=== PATIENT | female | born 1960 | race Caucasian/White ===

== ENCOUNTER 2017-01-24 15:00 | Inpatient (IN) | payer BC, OTHER ==
[~2017-01-24] VITALS: Ht 175.3 cm; Wt 109.8 kg
[~2017-01-24 15:00] MED LIST: ACET-2605 PO; ATOR10TA PO; Baclofen PO; CHOL400T28 PO; DICY20TA28 PO; DOCU100C36 PO; Docusate Sodium PO; Gabapentin PO; HYDR-3895 PO; PANT40TA4 PO; QUET100T PO; VALS160T2 GT
--- NOTE | 2017-01-24 15:20 | NUR ---
PRE ADMISSION Pt 56 y/o female received in intake. Pt alert and oriented to name, place, and time. Perrla. Skin warm and slightly moist to touch. Respirations even and unlabored. Bilateral hand tremors noted. Pt with pressured speech noted. Pt appeared agitated with brash abrupt responses. dq=721/63 p=83 t=98.0 r=16 o2=96%@ra. Explained unit rules to pt with acknowledgement. No distress noted.
--- NOTE | 2017-01-24 15:30 | NUR ---
ADMISSION Pt 56 y/o female admitted for etoh dependence. Pt alert and oriented to name, place, and time. Perrla. Skin warm and slightly moist to touch. Respirations even and unlabored. Bilateral hand tremors noted. Bruising on right lower back noted. Pt states it was from at s/p fall on 01/23/17 at home. Pt with pressured speech noted. Pt appeared agitated with brash abrupt responses. fa=645/63 p=83 t=98.0 r=16 o2=96%@ra. made aware of pt admission. Pt denies any seizure history. NKA. Full code. Pt states does not have pmd. Oriented pt to room and unit. VS wnl. substance hx: etoh wine oral. 6 regular bottles daily x2 weeks. Last drink was on 01/24/17 this morning and had 2 regular bottles. total 20 years. Medical hx: gastric bypass 1987 treatment hx: [facility] 05/2016 passages 05/2016 x 3 months Addendum: 01/24/17 at 1924 by JEFFREY MORELOS RN additional substance hx: Librium po unknown dose. Pt states has taken 1 pill daily x3 days. Last took on 01/24/17 1 pill.
[2017-01-24] MEDS ORDERED: TRAZ-147 PO (16:02)
[2017-01-24] MEDS ORDERED: CELE200C PO (16:02)
[2017-01-24] MEDS ORDERED: IBUP-1610 PO (16:02)
[2017-01-24] MEDS ORDERED: PROP40TA7 PO (16:02)
[2017-01-24] MEDS ORDERED: ONDA4TAB5 PO (16:02)
[2017-01-24] MEDS ORDERED: DULO60CA45 PO (16:02)
[2017-01-24] MEDS ORDERED: ATOR10TA PO (16:02)
[2017-01-24] MEDS ORDERED: ACAM333T8 PO (16:02)
[2017-01-24] MEDS ORDERED: ARNICA MONTANA SL (16:02)
[2017-01-24] MEDS ORDERED: GABA600T2 PO (16:02)
[2017-01-24] MEDS ORDERED: NAPR220T66 PO (16:02)
[2017-01-24] MEDS ORDERED: LACT1CAP57 PO (16:02)
[2017-01-24] MEDS ORDERED: ONDANSETRON HCL 4 MG TABLET PO PRN (16:30)
[2017-01-24] MEDS ORDERED: LORAZEPAM 1 MG TABLET PO PRN ×2 (16:30→17:30)
--- NOTE | 2017-01-24 16:30 | NUR ---
PRN pT WITH CIWA=12. bilateral hand tremors noted. Pt anxious and agitated with pressured speech and quick abrupt responses with raised voice. Ativan 1 mg po prn per MD order given and tolerated well.
[2017-01-24 16:47] LABS: *AMPHETAMINE, URINE NEGATIVE (NEGATIVE); *BARBITURATE, URINE NEGATIVE (NEGATIVE); *CANNABINOID, URINE NEGATIVE (NEGATIVE); *COCCAINE, URINE NEGATIVE (NEGATIVE); *OPIATE, URINE NEGATIVE (NEGATIVE); *PHENCYCLIDINE SCREEN,URINE NEGATIVE (NEGATIVE)
[2017-01-24] MEDS ORDERED: MAG HYDROX/AL HYDROX/SIMETH 30 ML LIQUID UDC PO PRN (17:30)
[2017-01-24] MEDS ORDERED: MIRALAX 17 GM POWD.PACK PO PRN (17:30)
[2017-01-24] MEDS ORDERED: diphenhydrAMINE 50 MG CAPSULE PO PRN (17:30)
[2017-01-24] MEDS ORDERED: LORAZEPAM 2 MG/1 ML VIAL IM PRN (17:30)
[2017-01-24] MEDS ORDERED: THIAMINE HCL 200 MG/2 ML VIAL IM ONE (17:30)
[2017-01-24] MEDS ORDERED: ONDANSETRON 4 MG/2 ML VIAL IM PRN (17:30)
[2017-01-24] MEDS ORDERED: ONDANSETRON ODT 4 MG TAB.RAPDIS SL PRN (17:30)
[2017-01-24] MEDS ORDERED: LOPERAMIDE HCL 2 MG CAPSULE PO PRN ×2 (17:30)
[2017-01-24] MEDS ORDERED: ACETAMINOPHEN 325 MG TABLET PO PRN (17:30)
--- NOTE | 2017-01-24 17:30 | NUR ---
PRN EVAL Pt with ciwa=4.
[2017-01-24] MEDS: CLONIDINE HCL 0.1 MG TABLET PO PRN (18:02)
--- NOTE | 2017-01-24 18:15 | NUR ---
PRN Pt states feels anxious. Catapres po prn per MD order given and tolerated well.
--- NOTE | 2017-01-24 18:50 | NUR ---
END OF SHIFT Pt 56 y/o female admitted for etoh dependence. Pt alert and oriented to name, place, and time. Perrla. Skin warm and slightly moist to touch. Respirations even and unlabored. Bilateral hand tremors noted. Pt with periods of anxiety and agitation this afternoon. Pt observed isolative to room since being admitted on unit this afternoon. Pt did not attend group activity this evening. Pt medication compliant and tolerated well. No ASE noted. Bed on lowest position with side rails x2 up for safety. Call light within reach. No distress noted at this time.
[2017-01-24] MEDS: LORAZEPAM 1 MG TABLET PO PRN (19:01)
--- NOTE | 2017-01-24 19:04 | NUR ---
PRN pt with ciwa = 8. Pt with bilateral hand tremors noted. Pt states feels anxious and is agitated. Ativan 1mg po prn per MD order given and tolerated well.
--- NOTE | 2017-01-24 19:15 | NUR ---
START OF SHIFT NOTE : Pt is 56 years old female admitted for ETOH dependence on 01/24/2017. Pt denies any seizure history. NKA. Full code on Reg. Diet. Pt. is resting in the room , alert and oriented to name, place, and time. Perrla. Skin warm and slightly moist to touch. RR=16, respirations even and unlabored. Bilateral hand tremors noted. Bruising on right lower back noted. Pt states it was from at s/p fall on 01/23/17 at home. Pt. placed on Ativan 2mg at 20:00 and 23:00 today. Safety measures in place : bed on lowest position with side rails x2 up for safety, call light within reach. Will continue to monitor closely and offer help.
[2017-01-24] MEDS ORDERED: IV NS 1000 ML 1,000 ML IV PRN (19:45)
[2017-01-24 20:00] VITALS: BP 135/75
[2017-01-24] MEDS: LORAZEPAM 1 MG TABLET PO SCH (20:18)
[2017-01-24 20:27] LABS: BASOPHILS % (AUTO) 0.1 % (0.0-2.0); EOSINOPHILS # (AUTO) 0.1 K/uL (0.0-0.7); EOSINOPHILS % (AUTO) 0.8 % (0.0-7.0); HEMATOCRIT 32.6 % (37-47); HEMOGLOBIN 11.2 G/DL (12.0-16.0); LYMPHOCYTES # (AUTO) 2.5 K/UL (0.8-4.8); MEAN CORPUSCULAR HEMOGLOBIN 30.4 UUG (27.0-31.0); MEAN CORPUSCULAR HGB CONC 34 g/dL (32.0-37.0); MEAN CORPUSCULAR VOLUME 88.4 FL (81.0-99.0); MONOCYTES # (AUTO) 0.5 K/UL (0.1-1.30); MONOCYTES % (AUTO) 4.2 % (0.0-11.0); NEUTROPHILS # (AUTO) 9.5 K/UL (1.8-8.9); NEUTROPHILS % (AUTO) 74.9 % (38.5-71.5); PLATELET COUNT (AUTO) 150 K/UL (150-450); RED BLOOD CELL COUNT(AUTO) 3.68 MIL/UL (4.2-5.4); WHITE BLOOD COUNT (AUTO) 12.6 K/UL (4.0-11.2)
[2017-01-24 20:34] LABS: ALANINE AMINOTRANSFERASE 45 U/L (14-59); ALKALINE PHOSPHATASE 142 U/L (50-136); AMYLASE 61 U/L (25-115); ASPARTATE AMINOTRANSFERASE 44 U/L (15-37); BILIRUBIN,TOTAL 1.1 mg/dL (0.2-1.0); CARBON DIOXIDE 27 mmol/L (21-32); CHLORIDE 95 mmol/L (98-107); CREATININE 0.9 mg/dL (0.6-1.3); ETHANOL < 3 MG/DL (0-0); GLUCOSE 119 mg/dL (74-106); MAGNESIUM 1.8 mg/dL (1.8-2.4); POTASSIUM 3.6 mmol/L (3.5-5.1); TOTAL PROTEIN, SERUM 6.1 g/dL (6.4-8.2); UREA NITROGEN, BLOOD 11 mg/dL (7-18)
[2017-01-24] MEDS: ATORVASTATIN 10MG PO SCH (20:55)
[2017-01-25] MEDS: LORAZEPAM 1 MG TABLET PO SCH ×4 (00:02→21:42)
[2017-01-25 00:37] VITALS: BP 148/87
--- NOTE | 2017-01-25 01:30 | NUR ---
PRN BENADRYL PT. COMPLAINS OF SLEEPLESSNESS, PRN BENADRYL GIVEN ORDERED. Safety measures in place : bed on lowest position with side rails x2 up for safety, call light within reach. Will continue to monitor closely and offer help.
--- NOTE | 2017-01-25 02:15 | NUR ---
IV Insert: Patient dehydrated and IV insertion difficult. Attempted x2 by RN's from unit. At 02:15, 22G inserted into left upper arm by ER nurse. Patient tolerated procedure well.
--- NOTE | 2017-01-25 02:30 | NUR ---
RE-ASSESSMENT SAURABH PT. IS SLEEPING , RR=16, UNLABORED AND EVEN . Safety measures in place : bed on lowest position with side rails x2 up for safety, call light within reach. Will continue to monitor closely and offer help.
--- NOTE | 2017-01-25 03:30 | NUR ---
JULIUS ORDONEZ, ATIVAN, CLONIDINE PT. COMPLAINS OF INCREASED LEVEL OF ANXIETY, NAUSEA, FLASHES, MILD BODY ACHE. PRBrain ZOFRAN, ATIVAN, CLONIDINE GIVEN ORDERED. Safety measures in place : bed on lowest position with side rails x2 up for safety, call light within reach. Will continue to monitor closely and offer help. Addendum: 01/25/17 at 0551 by WILLIAM العلي RN PRBrain ASHBYAN and ATIVAN given by the horticulture instructor, see also her notes. I gave Clonidine.
[2017-01-25] MEDS: LORAZEPAM 1 MG TABLET PO PRN ×2 (03:41→16:24)
--- NOTE | 2017-01-25 03:41 | NUR ---
PRN Zofran and PRN Ativan: Patient complains of severe nausea, anxiety, and agitation. Patient noted to be diaphoretic with moderate tremor. CIWA is 15. Administered PRN Ativan 1mg and PRN Zofran 4mg as ordered. Will endorse follow up and reassessment to primary nurse
[2017-01-25] MEDS: CLONIDINE HCL 0.1 MG TABLET PO PRN ×2 (03:48→16:24)
[2017-01-25 04:00] VITALS: BP 144/80
--- NOTE | 2017-01-25 04:30 | NUR ---
RE-ASSESSMENT ZOFRVENITA, ATIVAN, CLONIDINE PT. IS SLEEPING , RR=16, UNLABORED AND EVEN. Safety measures in place : bed on lowest position with side rails x2 up for safety, call light within reach. Will continue to monitor closely and offer help.
--- NOTE | 2017-01-25 05:00 | NUR ---
PRN ATIVAN PT. COMPLAINS OF INCREASED LEVEL OF ANXIETY, NAUSEA, FLASHES, MILD BODY ACHE, TREMOR. CIWA=16 , ATIVAN GIVEN ORDERED. Safety measures in place : bed on lowest position with side rails x2 up for safety, call light within reach. Will continue to monitor closely and offer help.
--- NOTE | 2017-01-25 06:00 | NUR ---
RE-ASSESSMENT ATIVAN PT. IS ABLE TO REST QUIETLY , RR=16, UNLABORED AND EVEN. CIWA=6 . Safety measures in place : bed on lowest position with side rails x2 up for safety, call light within reach. Will continue to monitor closely and offer help.
--- NOTE | 2017-01-25 06:54 | NUR ---
END OF SHIFT NOTE : Pt is 56 years old female admitted for ETOH dependence on 01/24/2017. Pt denies any seizure history. NKA. Full code on Reg. Diet. Pt. is alert and oriented to name, place, and time. Skin warm and slightly moist to touch. RR=16, respirations even and unlabored. Bruising on right lower back noted. Pt states it was from at s/p fall on 01/23/17 at home. IV G22 placed to the left UA, NS 0.9% at 125ml/h started around 02:00 A.M. Pt remains compliant with the treatment plan, Bilateral hand tremors noted. PRN BENADRYL, ZOFRAN, ATIVAN, CLONIDINE were given during my shift. Ativan PRN was given because of CIWA=16. V/S remain WNL. RR=16, even and unlabored, lungs clear upon auscultation, abdomen soft and non- distended. Pt denies vomiting and diarrhea. COWS taken when pt. was alert during the night, LAST COWS= 6 at 0600 , [id number] ml, voided x3 , slept 4 hours. IV drip stopped because of pt.s wish at 06:00. Safety measures in place : bed on lowest position with side rails x2 up for safety, call light within reach. Will continue to monitor closely and offer help.
[2017-01-25] MEDS: PANTOPRAZOLE SODIUM 40 MG TABLET.DR PO SCH (07:15)
--- NOTE | 2017-01-25 07:30 | NUR ---
START OF SHIFT Pt is a 56 yr old female, AA&Ox3. Pt was admitted on 01/24/17 for ETOH Dependence and is on 5 day Ativan taper as ordered. medication toni well. Received report from possum trapper nurse. Pt received multiple PRN during the night. Pt was able to sleep intermittent during the night. Last CIWA score was 6 at 0600. Pt has an IV site on LFA with 22 gauge, site is clean and intact. Pt is currently refusing IVF and is place on hold. Will f/u with MD. Pt is currently in bed resting with respirations even and unlabored. No acute distress noted at this time. Skin is intact, warm and dry to touch. Safety precautions observed. Bed kept in low position and locked with side rails up x2. Call light is within reach. Will continue to monitor.
[2017-01-25 08:00] VITALS: BP 129/77
[2017-01-25] MEDS ORDERED: TUBERCULIN,PURIF.PROT.DERIV. 5 TU/0.1 ML TEST ID ONE (09:00)
[2017-01-25] MEDS ORDERED: PATIENT MAY USE OWN MED- MD OK PO SCH (09:00)
[2017-01-25] MEDS: GABAPENTIN 600MG PO SCH ×3 (09:16→21:41)
[2017-01-25] MEDS: THIAMINE HCL 100 MG TABLET PO SCH (09:16)
[2017-01-25] MEDS: VALSARTAN 160MG PO SCH (09:16)
[2017-01-25] MEDS: MULTIVITAMINS,THERAPEUTIC TABLET PO SCH (09:16)
[2017-01-25] MEDS: FOLIC ACID 1 MG TABLET PO SCH (09:16)
[2017-01-25] MEDS: DULOXETINE 60 MG CAPSULE.DR PO SCH (09:40)
[2017-01-25 12:00] VITALS: BP 147/87
[2017-01-25] MEDS ORDERED: KETOROLAC TROMETHAMINE 30 MG INJ IM PRN (12:30)
[2017-01-25] MEDS ORDERED: IV D5 1/2 NS 1000 ML 1,000 ML IV PRN (12:30)
--- NOTE | 2017-01-25 13:21 | NUR ---
NSG NOTES/ PRN GIVEN Pt IV order changed to IV D5 1/2NS and was started on 1308 at 125ml/hr. IV site is on LFA, patent with dressing intact. Pt was also c/o back pain 11/14. Facial grimacing is observed. Toradol 30mg IM PRN was given as ordered. Will continue to monitor.
--- NOTE | 2017-01-25 14:21 | NUR ---
Toradol PRN was effective. Pt states pain level subsided to 4/10. Encouraged increase fluid intake Will continue to monitor.
[2017-01-25 16:00] VITALS: BP 133/82
--- NOTE | 2017-01-25 16:25 | NUR ---
PRN GIVEN Pt is c/o increase anxiety and nausea. CIWA score is 6. Ativan 1mg PO PRN, Clonidine 0.1mg PO PRN and Zofran 4mg SL PRN. Medication was toni well. Pt was encouraged to attend group sessions. Pt was able to verbalize understanding. Encouraged increase fluid intake. Will continue to monitor.
--- NOTE | 2017-01-25 17:25 | NUR ---
PRN RE-ASSESSMENT Ativan PRN, Clonidine PRN and Zofran PRN was effective. Pt continue to be observed with anxiety m/b difficulty staying still. Pt is still encouraged to attend group therapy. Pt was able to verbalize understanding. will continue to monitor.
--- NOTE | 2017-01-25 19:15 | NUR ---
START OF SHIFT NOTE : Pt is a 56 yr old female, AA&Ox3. Pt was admitted on 01/24/17 for ETOH Dependence and is on 5 day Ativan taper as ordered. medication toni well. Pt has been cooperative with medication regimen and plan of care. Pt has been observed with increase anxiety m/b difficultly staying still. Last CIWA score was 6 at 1900. Pt remains on IVF, IV site is on LFA with 22 gauge, site is clean and intact, D51/2NS at 125ml/h is running. Skin is intact, warm and dry to touch. Pt denies any n/v. Safety precautions observed. Bed kept in low position and locked with side rails up x2. Call light is within reach.
--- NOTE | 2017-01-25 19:35 | NUR ---
START OF SHIFT Pt is a 56 yr old female, AA&Ox3. Pt was admitted on 01/24/17 for ETOH Dependence and is on 5 day Ativan taper as ordered. medication toni well. Pt has been cooperative with medication regimen and plan of care. Pt has been observed with increase anxiety m/b difficultly staying still. Ativan PRN and Clonidine PRN was given and was mildly effective. Last CIWA score was 6 at 1600. Pt remains on IVF, IV site is on LFA with 22 gauge, site is clean and intact. Skin is intact, warm and dry to touch. Pt denies any n/v. Safety precautions observed. Bed kept in low position and locked with side rails up x2. Call light is within reach. Addendum: 01/25/17 at 2028 by GIANNA MCADAMS LVN error in documentation. Documentation is END OF SHIFT
[2017-01-25 20:00] VITALS: BP 113/70
[2017-01-25] MEDS ORDERED: LORAZEPAM 1 MG TABLET PO ONE (20:00)
[2017-01-25] MEDS ORDERED: LORAZEPAM 1 MG TABLET PO PRN ×2 (20:00)
[2017-01-25] MEDS: ATORVASTATIN 10MG PO SCH (21:41)
[2017-01-25] MEDS: TRAZODONE 100 MG TABLET PO SCH (21:42)
[2017-01-25] MEDS: CLONIDINE HCL 0.1 MG TABLET PO SCH (21:42)
--- NOTE | 2017-01-25 23:00 | NUR ---
PRN SEROQUEL PT. COMPLAINS OF SLEEPLESSNESS . PRN SEROQUEL GIVEN ORDERED. Safety measures in place : bed on lowest position with side rails x2 up for safety, call light within reach. Will continue to monitor closely and offer help.
[2017-01-25] MEDS: QUETIAPINE FUMARATE 100 MG TABLET PO PRN (23:38)
--- NOTE | 2017-01-25 23:59 | NUR ---
RE-ASSESSMENT SEROQUEL Pt. is sleeping , RR=16, unlabored and even. Safety measures in place : bed on lowest position with side rails x2 up for safety, call light within reach. Will continue to monitor closely and offer help.
--- NOTE | 2017-01-26 06:57 | NUR ---
END OF SHIFT NOTE : Pt is a 56 yr old female, admitted on 01/24/17 for ETOH Dependence and is on 5 day Ativan taper, started on 01/25/2017, medication tolerating well. Pt remains compliant with the treatment plan. PRN SEROQUEL given during my shift. V/S remain WNL. RR=16, even and unlabored, lungs clear upon auscultation, abdomen soft and non- distended. Pt denies nausea, vomiting and diarrhea. COWS taken when pt. was alert during the night, LAST COWS=4 at 0400 , [id number] ml, voided x2 , slept 6 hours. Safety measures in place : bed on lowest position with side rails x2 up for safety, call light within reach. Will continue to monitor closely and offer help.
[2017-01-26 07:31] LABS: BILIRUBIN,DIRECT 0.1 mg/dL (0.0-0.2); BILIRUBIN,TOTAL 0.4 mg/dL (0.2-1.0); CREATININE 0.8 mg/dL (0.6-1.3); MAGNESIUM 2.1 mg/dL (1.8-2.4); PHOSPHOROUS 4.6 mg/dL (2.5-4.9); POTASSIUM 3.5 mmol/L (3.5-5.1)
[2017-01-26] MEDS: PANTOPRAZOLE SODIUM 40 MG TABLET.DR PO SCH (07:35)
--- NOTE | 2017-01-26 07:55 | NUR ---
START OF SHIFT Rcvd endorsement from ongoing nurse, client is in bed, she is a/o x 4, she presents with depressed mood, flat affect, clammy skin, and tremors felt, not observed. Client reports chills, body aches, abdominal cramps, and decreased appetite. Encouraged client to attend group therapy for skills to maintain sober. Client with hep lock 22G on L AC, she is not compliant with IV fluid therapy for hydration, client is eating and drinking and tolerated well, she denies any N/V/D. Will notify MD. Encouraged client to increase PO fluid as tolerated to facilitate detox. One time dose Ativan 2mg for irritability, anxiety, noted effective. PRN Seroquel 150mg for inability to sleep, she slept 6 hrs. Client is a 56 y/o female, admitted to [facility] for withdrawal from alcohol. Client is on 5 day Ativan taper (day 3), tolerating well. Last CIWA 4 @ 0400. She reports hx of withdrawal-induced seizures, she is on seizure precautions. She reports of NKA, he is full code, Regular diet. Side rails x 2 up/padded. Call light within reach.
[2017-01-26 08:00] VITALS: BP 118/74
[2017-01-26 08:46] LABS: BASOPHILS % (AUTO) 0.3 % (0.0-2.0); EOSINOPHILS # (AUTO) 0.1 K/uL (0.0-0.7); EOSINOPHILS % (AUTO) 2.6 % (0.0-7.0); HEMATOCRIT 33.3 % (31.2-41.9); HEMOGLOBIN 11.4 g/dL (10.9-14.3); LYMPHOCYTES # (AUTO) 1.5 K/uL (20.0-40.0); MEAN CORPUSCULAR HGB CONC 34 g/dL (32.3-35.6); MEAN CORPUSCULAR VOLUME 90.4 fL (75.5-95.3); MONOCYTES # (AUTO) 0.3 K/uL (2.0-10.0); MONOCYTES % (AUTO) 6.1 % (0.0-11.0); NEUTROPHILS # (AUTO) 3.7 K/uL (1.8-8.9); RED BLOOD CELL COUNT(AUTO) 3.68 MIL/uL (3.63-4.92)
[2017-01-26 08:56] LABS: PLATELET COUNT (AUTO) 105 K/uL (179-408); WHITE BLOOD COUNT (AUTO) 5.7 K/uL (3.8-11.8)
[2017-01-26] MEDS: MULTIVITAMINS,THERAPEUTIC TABLET PO SCH (08:58)
[2017-01-26] MEDS: THIAMINE HCL 100 MG TABLET PO SCH (08:58)
[2017-01-26] MEDS: DULOXETINE 60 MG CAPSULE.DR PO SCH (08:58)
[2017-01-26] MEDS: LORAZEPAM 1 MG TABLET PO SCH ×3 (08:59→21:48)
[2017-01-26] MEDS: CLONIDINE HCL 0.1 MG TABLET PO SCH ×2 (08:59→14:37)
[2017-01-26] MEDS: FOLIC ACID 1 MG TABLET PO SCH (08:59)
[2017-01-26] MEDS ORDERED: LORAZEPAM 1 MG TABLET PO SCH (09:00)
[2017-01-26] MEDS: GABAPENTIN 600MG PO SCH ×2 (09:00→14:50)
[2017-01-26] MEDS: VALSARTAN 160MG PO SCH (09:01)
[2017-01-26 09:06] LABS: HEPATITIS B SURFACE AG Negative (Negative)
[2017-01-26] MEDS: busPIRone 5 MG TABLET PO SCH ×3 (09:45→17:27)
[2017-01-26 12:00] VITALS: BP 141/81
[2017-01-26] MEDS ORDERED: LORAZEPAM 1 MG TABLET PO ONE (12:00)
--- NOTE | 2017-01-26 12:00 | NUR ---
One time dose Ativan 2mg for CIWA 13, irritability, anxiety, fine tremors, chills. Call light within reach. will continue to monitor.
[2017-01-26] MEDS: IBUPROFEN 400 MG TABLET PO PRN (12:01)
--- NOTE | 2017-01-26 12:01 | NUR ---
PRN Motrin 400mg PO, Tylenol 650mg PO for RUBIO and generalized body aches 5/10 respectively. Call light within reach.
--- NOTE | 2017-01-26 13:00 | NUR ---
Reassessment One time dose Ativan 2mg PO, client appears less anxious and irritable. CIPANCHO 7.
--- NOTE | 2017-01-26 13:01 | NUR ---
Reassessment PRN Motrin 400mg PO, Tylenol 650mg PO effectove, client verbalizes feeling better no more RUBIO or body aches 0/10.
[2017-01-26 16:55] VITALS: BP 115/80
[2017-01-26] MEDS ORDERED: hydrALAZINE HCL 50 MG TABLET PO PRN (19:00)
--- NOTE | 2017-01-26 19:15 | NUR ---
START OF SHIFT NOTE : Pt is a 56 yr old female, AA&Ox3. Pt was admitted on 01/24/17 for ETOH Dependence and is on 5 day Ativan taper as ordered, started on 01/25/2017. Pt has been observed with increase anxiety m/b difficultly staying still, very demanding , running to smoke every 15-20 min. Last CIWA score was 7 at 1900. IVF D/C today. Skin is intact, warm and dry to touch. Pt denies any n/v. Safety precautions observed. Bed kept in low position and locked with side rails up x2. Call light is within reach.
--- NOTE | 2017-01-26 19:30 | NUR ---
END OF SHIFT Client is a 56 y/o female, , a/o x 4, admitted to [facility] for withdrawal from alcohol. Client is on 5 day Ativan taper (day 3), tolerating well. Last CIWA 8 @ 1600. D/Cd hep lock 22G. PRN Motrin 400mg PO, Tylenol 650mg PO for RUBIO and generalized body aches 5/10 respectively. One time dose Ativan 2mg for CIWA 13, irritability, anxiety, fine tremors, chills, effective CIWA 7. She reports hx of withdrawal-induced seizures, she is on seizure precautions. She reports of NKA, he is full code, Regular diet. Side rails x 2 up/padded. Call light within reach.
[2017-01-26 20:00] VITALS: BP 112/78
[2017-01-26] MEDS: TRAZODONE 100 MG TABLET PO SCH (21:47)
[2017-01-26] MEDS ORDERED: GABAPENTIN 300 MG CAPSULE ONE (22:16)
[2017-01-26] MEDS ORDERED: CLONIDINE HCL 0.2 MG TABLET ONE (22:17)
[2017-01-26] MEDS: ATORVASTATIN 10MG PO SCH (23:02)
[2017-01-26] MEDS: GABAPENTIN 300 MG CAPSULE PO SCH (23:03)
[2017-01-26] MEDS: QUETIAPINE FUMARATE 100 MG TABLET PO PRN (23:03)
[2017-01-26] MEDS: CLONIDINE HCL 0.2 MG TABLET PO SCH (23:04)
--- NOTE | 2017-01-27 06:39 | NUR ---
END OF SHIFT NOTE : Pt is a 56 yr old female, AA&Ox3. Pt was admitted on 01/24/17 for ETOH Dependence and is on 5 day Ativan taper as ordered, started on 01/25/2017. Pt remains compliant with the treatment plan. PRN SEROQUEL given during my shift. V/S remain WNL. RR=16, even and unlabored, lungs clear upon auscultation, abdomen soft and non- distended. Pt denies nausea, vomiting and diarrhea. CIWA taken when pt. was alert during the night, LAST CIWA=4 at 0400 , [id number] ml, voided x5 , slept 8 hours. Safety measures in place : bed on lowest position with side rails x2 up for safety, call light within reach. Will continue to monitor closely and offer help.
[2017-01-27] MEDS: PANTOPRAZOLE SODIUM 40 MG TABLET.DR PO SCH (07:00)
--- NOTE | 2017-01-27 07:16 | NUR ---
Start of Shift Endorsement received from nightshift nurse. Pt is a 56 y/o female admitted for alcohol dependence. PT has been placed on a 5 day Ativan taper. Pt is tolerating the taper and moderately withdrawing AEB CIWA 7 at midnight. Pt presents with history of seizures. Pt has received PRN Seroquel during nightshift. Pt reports sleeping 8 hours. PT is alert and oriented x4. Pt is in STABLE condition at this time. Remains compliant with medication and diet regimen. All needs have been met, All safety measures in place per hospital policy. Bed in lowest position, side rails up x2, call-light within reach. Will continue to monitor
[2017-01-27 08:00] VITALS: BP 136/77
[2017-01-27] MEDS ORDERED: LORAZEPAM 1 MG TABLET PO SCH ×2 (09:00→21:00)
[2017-01-27] MEDS: FOLIC ACID 1 MG TABLET PO SCH (09:27)
[2017-01-27] MEDS: LORAZEPAM 1 MG TABLET PO SCH ×3 (09:27→16:31)
[2017-01-27] MEDS: CLONIDINE HCL 0.1 MG TABLET PO SCH ×2 (09:27→15:28)
[2017-01-27] MEDS: THIAMINE HCL 100 MG TABLET PO SCH (09:27)
[2017-01-27] MEDS: DULOXETINE 60 MG CAPSULE.DR PO SCH (09:27)
[2017-01-27] MEDS: MULTIVITAMINS,THERAPEUTIC TABLET PO SCH (09:27)
[2017-01-27] MEDS: busPIRone 5 MG TABLET PO SCH ×3 (09:27→16:31)
--- NOTE | 2017-01-27 09:30 | NUR ---
PRN Imodium Administered PRN Imodium 4mg for repeated episodes of diarrhea reported by the pt.
[2017-01-27] MEDS: VALSARTAN 160MG PO SCH (09:35)
[2017-01-27] MEDS: PATIENT MAY USE OWN MED- MD OK PO SCH ×2 (09:35→15:28)
--- NOTE | 2017-01-27 10:00 | NUR ---
PRN Re-assessment PT reports diarrhea has ceased. Medication was effective.
[2017-01-27 12:00] VITALS: BP 125/82
--- NOTE | 2017-01-27 13:45 | NUR ---
Activity Group Note: Client participated in "Sequence" activity. Intervention goal was to increase task focus and leisure skills. Client's mood appeared anxious with appropriate affect. Client had a coherent and goal-directed thought process, as she was able to understand and complete the task. She stated that she "really likes getting together with people to play games." Clients benefits from leisure activities and social interaction with peers. cabinet worker will continue to encourage participation in activity group.
[2017-01-27 16:00] VITALS: BP 142/82
--- NOTE | 2017-01-27 18:47 | NUR ---
End of Shift Endorsement given to nightshift nurse. Pt is a 56 y/o female admitted for alcohol dependence. PT has been placed on a 5 day Ativan taper. Pt is tolerating the taper and moderately withdrawing AEB CIWA 4 at 1600. Pt presents with history of seizures. Pt has received PRN Imodium, medications were effective. Educated pt on foot hygiene. Educated pt on diet and medication regimen. Pt participated in groups and activities. Intake: 3500ml, Void x4, BM x0. PT is alert and oriented x4. Pt is in STABLE condition at this time. Remains compliant with medication and diet regimen. All needs have been met, All safety measures in place per hospital policy. Bed in lowest position, side rails up x2, call-light within reach. Will continue to monitor
--- NOTE | 2017-01-27 19:15 | NUR ---
START OF SHIFT NOTE : Pt is a 56 yr old female, AA&Ox3. Pt was admitted on 01/24/17 for ETOH Dependence and is on 5 day Ativan taper as ordered, started on 01/25/2017. Pt remains compliant with the treatment plan, complains of mild body ache, mild right leg pain, bruise on her left upper arm (photo assessment done, see chart for details), She wants her sleeping medications at 23:00. Safety measures in place : bed on lowest position with side rails x2 up for safety, call light within reach. Will continue to monitor closely and offer help.
[2017-01-27 20:00] VITALS: BP 148/90
[2017-01-27] MEDS: ATORVASTATIN 10MG PO SCH (21:09)
[2017-01-27] MEDS: GABAPENTIN 300 MG CAPSULE PO SCH (21:11)
[2017-01-27] MEDS: CLONIDINE HCL 0.2 MG TABLET PO SCH (21:11)
[2017-01-27] MEDS: QUETIAPINE FUMARATE 100 MG TABLET PO PRN (23:08)
[2017-01-27] MEDS: TRAZODONE 100 MG TABLET PO SCH (23:08)
--- NOTE | 2017-01-28 06:46 | NUR ---
END OF SHIFT NOTE : Pt is a 56 yr old female, AA&Ox3. Pt was admitted on 01/24/17 for ETOH Dependence and is on 5 day Ativan taper as ordered, started on 01/25/2017 Pt remains compliant with the treatment plan. PRN SEROQUEL given during my shift. RR=16, even and unlabored, lungs clear upon auscultation, abdomen soft and non- distended. Pt denies nausea, vomiting and diarrhea. CIWA taken when pt. was alert during the night, LAST CIWA=5 at 0400 , [id number] ml, voided x4 , slept 5 hours. Safety measures in place : bed on lowest position with side rails x2 up for safety, call light within reach. Will continue to monitor closely and offer help.
[2017-01-28] MEDS: PANTOPRAZOLE SODIUM 40 MG TABLET.DR PO SCH (07:00)
--- NOTE | 2017-01-28 07:10 | NUR ---
Start of Shift Report from night nurse: Pt is a 56 y/o female here for EtoH r/t Win 2 bottles per day and Librium 3 pills per day; 5 day Ativan taper ordered. Pt is a full code, NKA, regular diet, fall and seizure precautions ordered. Hhx: Fall 01/23/2017 causing bruises on RLE and on back, Seizure, Relapse with last visits 05/2016 in detoxes including here, Gastric Bypass Surgery. Pt refused to have the 0700 dose of Protonix this morning during the cnc machinist 2nd shift and is endorsed to me. No PRN's given last night. Last CIWA 5. Pt is asleep in room. Will cont. to monitor the pt.
[2017-01-28 08:00] VITALS: BP 136/80
[2017-01-28] MEDS ORDERED: LORAZEPAM 1 MG TABLET PO SCH ×2 (09:00)
--- NOTE | 2017-01-28 11:00 | NUR ---
Medication Non-Administration Ativan Pt has been asleep snoring in her room since the start of my shift so HELD Ativan 1mg and notified Dr. Starkey. Will cont. to monitor the pt.
[2017-01-28] MEDS: busPIRone 5 MG TABLET PO SCH ×3 (11:15→16:07)
[2017-01-28 12:00] VITALS: BP 146/83
--- NOTE | 2017-01-28 12:00 | NUR ---
PRN Medication Administration Pt c/o RUBIO and general body ache 5/10 and constipation; PRN Motrin 400mg and Miralax given as ordered. Will reassess in 1H.
[2017-01-28] MEDS: THIAMINE HCL 100 MG TABLET PO SCH (12:02)
[2017-01-28] MEDS: CLONIDINE HCL 0.1 MG TABLET PO SCH ×2 (12:02→16:09)
[2017-01-28] MEDS: MULTIVITAMINS,THERAPEUTIC TABLET PO SCH (12:02)
[2017-01-28] MEDS: FOLIC ACID 1 MG TABLET PO SCH (12:02)
[2017-01-28] MEDS: DULOXETINE 60 MG CAPSULE.DR PO SCH (12:02)
[2017-01-28] MEDS: PATIENT MAY USE OWN MED- MD OK PO SCH (12:04)
[2017-01-28] MEDS: VALSARTAN 160MG PO SCH (12:05)
[2017-01-28] MEDS: IBUPROFEN 400 MG TABLET PO PRN (12:06)
[2017-01-28] MEDS: LORAZEPAM 1 MG TABLET PO SCH ×3 (12:44→20:41)
--- NOTE | 2017-01-28 12:45 | NUR ---
Medication Administration Ativan ONCE New Order for Ativan 1mg PO ONCE after I notified Dr. Starkey that the pt is awake and very agitated with anxiety; New orders for Ativan 1mg ONCE given for anxiety. Will reassess in 1H.
--- NOTE | 2017-01-28 13:00 | NUR ---
Reassessment Pt is headed to smoke and states that her RUBIO is relieved but no BM at this time; Motrin is effective. Will cont. to monitor the pt.
--- NOTE | 2017-01-28 13:45 | NUR ---
Activity Group Note: Client attended activity group. She was unable to participate in "painting" activity stating, "I am not feeling well... I will come back once I feel better." Client appeared to have a depressed mood with flat affect. Client was unable to complete the task. sample worker will continue to encourage participation in activity group in the future.
--- NOTE | 2017-01-28 13:45 | NUR ---
Reassessment Pt is going down to smoke after lunch and states that her anxiety has decreased; Ativan is effective for anxiety. Will cont. to monitor the pt.
[2017-01-28 16:00] VITALS: BP 132/82
[2017-01-28] MEDS: GABAPENTIN 300 MG CAPSULE PO SCH ×2 (16:07→20:40)
--- NOTE | 2017-01-28 16:26 | NUR ---
Therapist prompted client about group times. Client apologized for not attending morning group, stated she fell asleep. Client reported she would attend afternoon group.
--- NOTE | 2017-01-28 19:34 | NUR ---
START OF SHIFT NOTE: Patient is a 56 year old female admitted to [facility] on 01/24/2017 for Alcohol and Librium dependence. Patient continue 5 Day Ativan Taper. Patient tolerated well without ASE. Patient remains compliant with treatment, medications, and diet regime. Patient reports NKA. Patient is on Full Code, Regular Diet, Fall and Seizures Precautions. PMH: Anxiety, Depression, Insomnia, HTN, History of Seizures, Falls history "Last on 01/23/2017 r/t intoxication @home", Gastric Pass Surgery, Substance Abuse History. Patient reports Alcohol use "6 bottles of Wine every day during last 2 week". Last used "2 bottles of wine on 01/24/2017 ". Patient reports also "used Librium PO "3 pills total - one per day. Last used 1 pill on 01/24/2017". Upon endorsement, patient is in her room. Patient is alert and oriented x4. Patient denied SI/HI. VSWNL. CIWA 8. Breathing is unlabored and even. Lungs Sounds are clear thoroughly. Abdomen is soft, non-tender. Bowel Sounds are active in all 4 quadrants. Skin is, warm and dry to touch. Patient has bruises on Right Upper Arm and on the Back "from falls on 01/23/2017 @home". Encouraged fluids intake as tolerated. All needs met. Safety measures in place: Call light within the patient, bed in lowest position, and locked, padded bed rails up x2. Patient endorsed by outgoing day shift nurse, report received. Will continue to monitor closely.
--- NOTE | 2017-01-28 19:34 | NUR ---
End of Shift Report from night nurse: Pt is a 56 y/o female here for EtoH r/t Win 2 bottles per day and Librium 3 pills per day; 5 day Ativan taper ordered. Pt is a full code, NKA, regular diet, fall and seizure precautions ordered. Hhx: Fall 01/23/2017 causing bruises on RLE and on back, Seizure, Relapse with last visits 05/2016 in detoxes including here, Gastric Bypass Surgery. Pt refused to have the 0700 dose of Protonix this morning during the rn shift mgr and is endorsed to me yet pt slept and missed her 0900meds including Ativan 1mg so notified. Last CIWA 6. PRN MIralax and MOtrin 400mg given with pt having a BM and RUBIO relieved.
[2017-01-28 20:00] VITALS: BP 135/77
[2017-01-28] MEDS: CLONIDINE HCL 0.2 MG TABLET PO SCH (20:41)
[2017-01-28] MEDS: TRAZODONE 100 MG TABLET PO SCH (20:41)
[2017-01-28] MEDS: ATORVASTATIN 10MG PO SCH (20:47)
[2017-01-29] VITALS: BP 140/84
[2017-01-29] MEDS ORDERED: QUETIAPINE FUMARATE 100 MG TABLET ONE ×2 (00:13→23:04)
[2017-01-29] MEDS: QUETIAPINE FUMARATE 100 MG TABLET PO PRN ×2 (00:20→23:34)
--- NOTE | 2017-01-29 00:20 | NUR ---
PRN SEROQUEL 150 MG 1.5 TAB PO ADMINISTRATION PRN Seroquel 150 mg 1.5 tab. PO administrated with full glass of water as ordered. Patient tolerated well. All needs met. Safety measures on place. Call light within reach, bed in lowest position and locked, padded rails up bilaterally rails up bilaterally. Will continue to monitor closely.
--- NOTE | 2017-01-29 01:20 | NUR ---
RE-ASSESSMENT Patient is sleeping. Respirations even and unlabored. RR:14. PRN Seroquel 150 mg 1.5 tab. PO administrated @0020 was effective. All needs met. Safety measures on place. Call light within reach, bed in lowest position and locked, padded rails up bilaterally rails up bilaterally. Will continue to monitor closely.
--- NOTE | 2017-01-29 04:00 | NUR ---
VS REFUSED AND CIWA DEFERRED Patient refused to be woken up for 0400 VS. CIWA deferred d/t patient sleeping to assess while patient is awake. Safety measures on place by hospital policy: Call light within reach, bed in lowest position, and locked; side rails up x2. Will continue to monitor closely.
--- NOTE | 2017-01-29 07:10 | NUR ---
END OF SHIFT NOTE: Patient is a 56 year old female admitted to [facility] on 01/24/2017 for Alcohol and Librium dependence. Patient continue 5 Day Ativan Taper. Patient tolerated well without ASE. Patient remains compliant with treatment, medications, and diet regime. Patient reports NKA. Patient is on Full Code, Regular Diet, Fall and Seizures Precautions. PMH: Anxiety, Depression, Insomnia, HTN, History of Seizures, Fall history on "01/23/2017 r/t intoxication @home", Gastric Pass Surgery, Substance Abuse History. Patient denied SI/HI. Patient refused to be woken up for 0400 VS. COWS/CIWA deferred d/t patient sleeping to assess while patient is awake. Last CIWA 6 @0000. CIWA taken when patient was alert during the night. Latest VS @0000: T: 97.7, BP: 140/84, HR:97, RR:19, RA O2Sat: 98%. Pain level: "0/10". Respirations unlabored and even. Patient denies SOB and chest pain. Skin is, warm and dry to touch. Patient has bruises on Right Upper Arm and on the Back "from falls on 01/23/2017 @home". PRN Seroquel 150 mg 1.5 tab. PO administrated @0020 was effective. Patient slept 5 hours, intake 2,710 ml, voided x6, stool x1. Encourage fluids as tolerated. Encourage to attend activities groups. All needs met. Safety measures on place. Call light within reach, bed in lowest position and locked, padded rails up bilaterally. Patient endorsed to day shift nurse.
--- NOTE | 2017-01-29 07:30 | NUR ---
START OF SHIFT Pt 56 y/o female admitted for etoh dependence. Pt received in room on bed with eyes closed resting, but easily arousable to name. Pt alert and oriented to name, place, and time. Perrla. Skin warm and dry to touch. Respirations even and unlabored. Bilateral hand tremors noted. It was reported that pt slept for 4 hours last night. Bed on lowest position with side rails x2 up for safety. Call light within reach. No distress noted at this time.
[2017-01-29 08:00] VITALS: BP 132/84
[2017-01-29] MEDS: DULOXETINE 60 MG CAPSULE.DR PO SCH (09:00)
[2017-01-29] MEDS: busPIRone 5 MG TABLET PO SCH ×3 (09:03→18:13)
[2017-01-29] MEDS: GABAPENTIN 300 MG CAPSULE PO SCH ×3 (09:03→21:44)
[2017-01-29] MEDS: LORAZEPAM 1 MG TABLET PO SCH ×2 (09:04→21:45)
[2017-01-29] MEDS: PANTOPRAZOLE SODIUM 40 MG TABLET.DR PO SCH (09:04)
[2017-01-29] MEDS: THIAMINE HCL 100 MG TABLET PO SCH (09:04)
[2017-01-29] MEDS: MULTIVITAMINS,THERAPEUTIC TABLET PO SCH (09:04)
[2017-01-29] MEDS: FOLIC ACID 1 MG TABLET PO SCH (09:04)
[2017-01-29] MEDS: CLONIDINE HCL 0.1 MG TABLET PO SCH ×2 (09:04→14:59)
[2017-01-29] MEDS: VALSARTAN 160MG PO SCH (09:05)
[2017-01-29 12:17] VITALS: BP 136/88
--- NOTE | 2017-01-29 13:45 | NUR ---
Activity Group Note: Client participated in "Sequence" activity. Intervention goal was to increase task focus and leisure skills. Client appeared to have an anxious and combative mood with labile affect. Client had a coherent and goal-directed thought process as she was able to understand and complete the task. Client left 30 minutes early after one round of the game was finished. Client stated, "I'm over this. I'm out." bilingual social worker will check in with client when time permits.
[2017-01-29] MEDS: CELEBREX 200 MG PO SCH (14:57)
[2017-01-29 16:00] VITALS: BP 123/80
--- NOTE | 2017-01-29 18:28 | NUR ---
END OF SHIFT Pt 56 y/o female admitted for etoh dependence. Pt alert and oriented to name, place, and time. Perrla. Skin warm and dry to touch. Respirations even and unlabored. Bilateral hand tremors noted. Pt observed mostly in dining room throughout the day. Pt with periods of anxiety this morning. Pt attended group activity. Pt was seen by MD today. Pt medication compliant and tolerated well. No ASE noted. Bed on lowest position with side rails x2 up for safety. Call light within reach. No distress noted at this time.
--- NOTE | 2017-01-29 19:15 | NUR ---
START OF SHIFT NOTE : Pt is a 56 yr old female, AA&Ox3. Pt was admitted on 01/24/17 for ETOH Dependence and is on 5 day Ativan taper as ordered, started on 01/25/2017. Pt remains partially compliant with the treatment plan, complains of mild body ache, anxiety. She wants her sleeping medications at 23:00. Safety measures in place : bed on lowest position with side rails x2 up for safety, call light within reach. Will continue to monitor closely and offer help.
[2017-01-29 20:00] VITALS: BP 145/85
--- NOTE | 2017-01-29 20:20 | NUR ---
ROOM RESTRICTION Pt. is arguing with a stuff , doesn't follow unit policy and rules. She placed on ROOM RESTRICTION at 20:20
[2017-01-29] MEDS: ATORVASTATIN 10MG PO SCH (21:43)
[2017-01-29] MEDS: CLONIDINE HCL 0.2 MG TABLET PO SCH (21:45)
[2017-01-29] MEDS: TRAZODONE 100 MG TABLET PO SCH (23:34)
--- NOTE | 2017-01-30 06:54 | NUR ---
END OF SHIFT NOTE : Pt is a 56 yr old female, AA&Ox3. Pt was admitted on 01/24/17 for ETOH Dependence and is on 5 day Ativan taper as ordered, started on 01/25/2017. Pt remains partially compliant with the treatment plan, still on room restriction. PRN SEROQUEL was given during my shift. V/S remain WNL. RR=16, even and unlabored, lungs clear upon auscultation, abdomen soft and non- distended. Pt denies nausea, vomiting and diarrhea. CIWA taken when pt. was alert during the night, LAST CIWA=3 at 0400 , [id number] ml, voided x4 , slept 6 hours. Safety measures in place : bed on lowest position with side rails x2 up for safety, call light within reach. Will continue to monitor closely and offer help.
--- NOTE | 2017-01-30 07:00 | NUR ---
Star of Shift Notes: Received patient in her room. Alert and verbally responsive. Able to make her needs known. Respirations even and unlabored. No SOB noted. SKin warm and dry to touch. Abdomen soft and non-distended. BS (+) in all 4 quadrants. No complains of N/V/D or constipation noted. Bladder non-distended. BS (+) in all 4 quadrants. No complains of dysuria. Ambulatory ad jonathan with steady gait. Pztient is a 56 year old female admitted for ETOH and BZO dependence who was placed on a 5-day Ativan taper as ordered. No adverse reactions noted. Prior to admission, patient was using 6 bottles of wine and 3 "pills" of Librium. Has past medical hx of gastric bypass, fall and HTN. No seizure history noted. NKA. FULL CODE. Regular diet. Educated patient on her current plan of care for the day and her medication regimen. Encouraged oral fluid intake and encouraged group participation to learn new skills to prevent relapse. Will continue to monitor
[2017-01-30] MEDS: PANTOPRAZOLE SODIUM 40 MG TABLET.DR PO SCH (07:59)
[2017-01-30 08:00] VITALS: BP 136/82
[2017-01-30] MEDS: MULTIVITAMINS,THERAPEUTIC TABLET PO SCH (08:00)
[2017-01-30] MEDS: GABAPENTIN 300 MG CAPSULE PO SCH (08:00)
[2017-01-30] MEDS: busPIRone 5 MG TABLET PO SCH (08:00)
[2017-01-30] MEDS: DULOXETINE 60 MG CAPSULE.DR PO SCH (08:00)
[2017-01-30] MEDS: CLONIDINE HCL 0.1 MG TABLET PO SCH (08:00)
[2017-01-30] MEDS: VALSARTAN 160MG PO SCH (08:00)
[2017-01-30] MEDS: FOLIC ACID 1 MG TABLET PO SCH (08:00)
[2017-01-30] MEDS: THIAMINE HCL 100 MG TABLET PO SCH (08:00)
[2017-01-30] MEDS: CELEBREX 200 MG PO SCH (08:00)
[2017-01-30] MEDS ORDERED: LORAZEPAM 1 MG TABLET PO SCH (09:00)
[2017-01-30] MEDS ORDERED: METHOCARBAMOL 750 MG TABLET PO PRN (11:15)
[2017-01-30 12:00] VITALS: BP 135/80
--- NOTE | 2017-01-30 12:47 | NUR ---
AMA Note: Patient left the unit AMA. Patient refused to comply with treatment and unit's policies and rules. Patient education provided regarding the risk and consequences of leaving AMA. Patient continues to be adamant about leaving and at times becomes verbally aggressive towards staff. Multiple staff memvers including doctors, caseworker protective services and nurses attempted to reason out with patient without any success. VS WNL. Skin intact. Bruise to right upper and lower back healing, appears yellow on the surface. MD Starkey and patient's psychiatrist. Patient was given a list of community resources, AMA forms explained and signed. All belongings, meds and toiletries were returned to the patient. Patient left the unit via AMA at this time.
[2017-01-30] MEDS ORDERED: GABAPENTIN 300 MG CAPSULE PO SCH (15:00)
== END 2017-01-30 14:42 | disposition left against medical advice (07) | DRG 894 ==
LOC: SRC 15:00
PROVIDERS: ADMIT Internal Medicine; ATTEND Internal Medicine
PROC: HZ2ZZZZ Detoxification Services for Substance Abuse Treatment (ICD-10-PCS; principal; 2017-01-24)
PROC: HZ41ZZZ Group Counseling for Substance Abuse Treatment, Behavioral (ICD-10-PCS; 2017-01-26)
PROC: HZ31ZZZ Individual Counseling for Substance Abuse Treatment, Behavioral (ICD-10-PCS; 2017-01-27)
DX: F10.232 Alcohol dependence with withdrawal with perceptual disturbance (principal); D69.6 Thrombocytopenia, unspecified; E87.8 Other disorders of electrolyte and fluid balance, not elsewhere classified; E88.81 Metabolic syndrome and other insulin resistance; E87.1 Hypo-osmolality and hyponatremia; F33.1 Major depressive disorder, recurrent, moderate; K70.10 Alcoholic hepatitis without ascites; F17.210 Nicotine dependence, cigarettes, uncomplicated; Y90.9 Presence of alcohol in blood, level not specified; F90.9 Attention-deficit hyperactivity disorder, unspecified type; G47.00 Insomnia, unspecified; G89.29 Other chronic pain; K27.7 Chronic peptic ulcer, site unspecified, without hemorrhage or perforation; E66.9 Obesity, unspecified; Z68.35 Body mass index [BMI] 35.0-35.9, adult; E78.5 Hyperlipidemia, unspecified; I15.9 Secondary hypertension, unspecified; E86.1 Hypovolemia; D72.823 Leukemoid reaction; D64.9 Anemia, unspecified; M54.5 Low back pain; F13.90 Sedative, hypnotic, or anxiolytic use, unspecified, uncomplicated; F41.9 Anxiety disorder, unspecified
CPT/HCPCS: 36415; 70030-TC; 80307; 80346; 83735; 84100; 85025; 86580; 86592; 86705; 86803; 87340; 87806; A4663; G0480; J1885; J2405; J3411; J3490; J7030; Q0162; Q0163

== ENCOUNTER 2017-06-25 18:44 | Inpatient (IN) | payer BC, OTHER ==
[~2017-06-25] VITALS: Ht 175.3 cm; Wt 108.9 kg
[~2017-06-25 18:44] MED LIST changes: +ACAM333T8 PO; -ACET-2605 PO; -Baclofen PO; +CELE200C PO; -DICY20TA28 PO; -DOCU100C36 PO; -Docusate Sodium PO; +LACT1CAP57 PO; +ONDA4TAB5 PO; +TRAZ-147 PO
[2017-06-25] MEDS ORDERED: MIRALAX 17 GM POWD.PACK PO PRN (21:30)
[2017-06-25] MEDS ORDERED: ONDANSETRON 4 MG/2 ML VIAL IM PRN (21:30)
[2017-06-25] MEDS ORDERED: LOPERAMIDE HCL 2 MG CAPSULE PO PRN ×2 (21:30)
[2017-06-25] MEDS ORDERED: MAG HYDROX/AL HYDROX/SIMETH 30 ML LIQUID UDC PO PRN (21:30)
[2017-06-25] MEDS ORDERED: ACETAMINOPHEN 325 MG TABLET PO PRN (21:30)
[2017-06-25] MEDS ORDERED: MAGNESIUM HYDROXIDE 30 ML LIQUID UDC PO PRN (21:30)
[2017-06-25] MEDS ORDERED: NICOTINE POLACRILEX 4 MG GUM-PK OF TEN BC PRN (21:30)
[2017-06-25] MEDS ORDERED: LORAZEPAM 2 MG/1 ML VIAL IM PRN (21:30)
[2017-06-25] MEDS ORDERED: NICOTINE 14 MG/24HR PATCH TD PRN (21:30)
[2017-06-25] MEDS ORDERED: diphenhydrAMINE 50 MG CAPSULE PO PRN (21:30)
[2017-06-25 21:57] LABS: *URINE HCG, QUAL NEGATIVE (NEGATIVE)
[2017-06-25 22:04] LABS: BASOPHILS # (AUTO) 0.1 K/uL (0.0-8.0); EOSINOPHILS # (AUTO) 0.2 K/uL (0.0-0.7); EOSINOPHILS % (AUTO) 2.1 % (0.0-7.0); HEMATOCRIT 30.6 % (31.2-41.9); HEMOGLOBIN 10.4 g/dL (10.9-14.3); LYMPHOCYTES # (AUTO) 3.9 K/uL (20.0-40.0); LYMPHOCYTES % (AUTO) 37.4 % (20.5-51.5); MEAN CORPUSCULAR HEMOGLOBIN 29.7 uug (24.7-32.8); MEAN CORPUSCULAR HGB CONC 34 g/dL (32.3-35.6); MEAN CORPUSCULAR VOLUME 87.8 fL (75.5-95.3); MONOCYTES # (AUTO) 0.7 K/uL (2.0-10.0); MONOCYTES % (AUTO) 6.7 % (0.0-11.0); NEUTROPHILS # (AUTO) 5.5 K/uL (1.8-8.9); NEUTROPHILS % (AUTO) 52.8 % (38.5-71.5); PLATELET COUNT (AUTO) 238 K/uL (179-408); RED BLOOD CELL COUNT(AUTO) 3.49 MIL/uL (3.63-4.92); WHITE BLOOD COUNT (AUTO) 10.4 K/uL (3.8-11.8)
[2017-06-25 22:09] LABS: *AMPHETAMINE, URINE NEGATIVE (NEGATIVE); *BARBITURATE, URINE NEGATIVE (NEGATIVE); *CANNABINOID, URINE NEGATIVE (NEGATIVE); *COCCAINE, URINE NEGATIVE (NEGATIVE); *OPIATE, URINE NEGATIVE (NEGATIVE); *PHENCYCLIDINE SCREEN,URINE NEGATIVE (NEGATIVE)
[2017-06-25 22:10] VITALS: BP 117/65
[2017-06-25 22:18] LABS: BILIRUBIN,TOTAL 0.2 mg/dL (0.2-1.0); CREATININE 0.7 mg/dL (0.6-1.3); MAGNESIUM 2.1 mg/dL (1.8-2.4); TOTAL PROTEIN, SERUM 6.7 g/dL (6.4-8.2)
[2017-06-25] MEDS: THIAMINE HCL 100 MG TABLET PO SCH (22:30)
[2017-06-25 23:18] LABS: LYMPHOCYTES % (MANUAL) 42 % (20-40); MONOCYTES % (MANUAL) 4 % (2-10); NEUTROPHILS % (MANUAL) 54 % (42-75)
[2017-06-25] MEDS: LORAZEPAM 1 MG TABLET PO PRN (23:37)
[2017-06-26 00:28] VITALS: BP 127/74
[2017-06-26] MEDS: IBUPROFEN 600 MG TABLET PO PRN ×2 (02:54→20:53)
[2017-06-26] MEDS: ONDANSETRON ODT 4 MG TAB.RAPDIS SL PRN (02:54)
[2017-06-26] MEDS: LORAZEPAM 1 MG TABLET PO PRN ×5 (03:01→18:51)
[2017-06-26 04:29] VITALS: BP 120/68
[2017-06-26 08:00] VITALS: BP 137/71
[2017-06-26] MEDS ORDERED: TUBERCULIN,PURIF.PROT.DERIV. 5 TU/0.1 ML TEST ID ONE (09:00)
[2017-06-26] MEDS: THIAMINE HCL 100 MG TABLET PO SCH (09:18)
[2017-06-26] MEDS: LORAZEPAM 1 MG TABLET PO SCH ×4 (09:18→20:53)
[2017-06-26] MEDS: MULTIVITAMINS,THERAPEUTIC TABLET PO SCH (09:18)
[2017-06-26] MEDS: PANTOPRAZOLE SODIUM 40 MG TABLET.DR PO SCH (09:18)
[2017-06-26] MEDS: FOLIC ACID 1 MG TABLET PO SCH (09:19)
[2017-06-26] MEDS: GABAPENTIN 300 MG CAPSULE PO SCH ×3 (09:19→20:53)
[2017-06-26] MEDS: VALSARTAN 160 MG TABLET PO SCH (09:19)
[2017-06-26] MEDS: CELECOXIB 200 MG CAPSULE PO SCH (09:20)
[2017-06-26] MEDS: DICYCLOMINE HCL 20 MG TABLET PO PRN ×2 (10:10→18:55)
[2017-06-26] MEDS ORDERED: CALCIUM CARBONATE 500 MG TAB.CHEW PO PRN (10:45)
[2017-06-26 12:00] VITALS: BP 134/77
[2017-06-26] MEDS ORDERED: QUETIAPINE FUMARATE 100 MG TABLET PO PRN (14:45)
[2017-06-26 16:00] VITALS: BP 135/77
[2017-06-26] MEDS: KETOROLAC TROMETHAMINE 30 MG INJ IM PRN (17:11)
[2017-06-26 20:22] VITALS: BP 129/74
[2017-06-26] MEDS: ATORVASTATIN 10 MG TABLET PO SCH (20:53)
[2017-06-27 00:19] VITALS: BP 134/85
[2017-06-27 04:30] VITALS: BP 127/77
[2017-06-27] MEDS: LORAZEPAM 1 MG TABLET PO PRN (05:39)
[2017-06-27] MEDS: KETOROLAC TROMETHAMINE 30 MG INJ IM PRN ×2 (05:40→19:32)
[2017-06-27] MEDS: ONDANSETRON ODT 4 MG TAB.RAPDIS SL PRN (05:46)
[2017-06-27 08:06] LABS: HEPATITIS B SURFACE AG Negative (Negative)
[2017-06-27 08:30] VITALS: BP 140/80
[2017-06-27] MEDS: LORAZEPAM 1 MG TABLET PO SCH ×3 (08:40→20:55)
[2017-06-27] MEDS: CELECOXIB 200 MG CAPSULE PO SCH (08:40)
[2017-06-27] MEDS: GABAPENTIN 300 MG CAPSULE PO SCH ×2 (08:41→14:25)
[2017-06-27] MEDS: PANTOPRAZOLE SODIUM 40 MG TABLET.DR PO SCH (08:41)
[2017-06-27] MEDS: MULTIVITAMINS,THERAPEUTIC TABLET PO SCH (08:41)
[2017-06-27] MEDS: VALSARTAN 160 MG TABLET PO SCH (08:41)
[2017-06-27] MEDS: FOLIC ACID 1 MG TABLET PO SCH (08:41)
[2017-06-27] MEDS: THIAMINE HCL 100 MG TABLET PO SCH (08:41)
[2017-06-27] MEDS: QUETIAPINE FUMARATE 25 MG TABLET PO PRN ×2 (10:04→23:07)
[2017-06-27] MEDS: DULOXETINE 60 MG CAPSULE.DR PO SCH (10:05)
[2017-06-27 12:34] VITALS: BP 156/97
[2017-06-27] MEDS: hydrALAZINE HCL 50 MG TABLET PO PRN (14:25)
[2017-06-27 18:00] VITALS: BP 138/73
[2017-06-27] MEDS: HYDROXYZINE PAMOATE 25 MG CAPSULE PO PRN (19:27)
[2017-06-27 20:00] VITALS: BP 125/71
[2017-06-27] MEDS: DICYCLOMINE HCL 20 MG TABLET PO PRN (20:18)
[2017-06-27] MEDS: ATORVASTATIN 10 MG TABLET PO SCH (20:55)
[2017-06-27] MEDS ORDERED: GABAPENTIN 300 MG CAPSULE PO SCH (21:00)
[2017-06-28] MEDS: QUETIAPINE FUMARATE 25 MG TABLET PO PRN ×3 (05:35→13:57)
[2017-06-28] MEDS: DICYCLOMINE HCL 20 MG TABLET PO PRN ×2 (05:35→08:38)
[2017-06-28 08:00] VITALS: BP 142/73
[2017-06-28] MEDS: CELECOXIB 200 MG CAPSULE PO SCH (08:38)
[2017-06-28] MEDS: DULOXETINE 60 MG CAPSULE.DR PO SCH (08:38)
[2017-06-28] MEDS: FOLIC ACID 1 MG TABLET PO SCH (08:38)
[2017-06-28] MEDS: MULTIVITAMINS,THERAPEUTIC TABLET PO SCH (08:38)
[2017-06-28] MEDS: GABAPENTIN 300 MG CAPSULE PO SCH ×3 (08:38→20:55)
[2017-06-28] MEDS: VALSARTAN 160 MG TABLET PO SCH (08:39)
[2017-06-28] MEDS: PANTOPRAZOLE SODIUM 40 MG TABLET.DR PO SCH (08:39)
[2017-06-28] MEDS: THIAMINE HCL 100 MG TABLET PO SCH (08:39)
[2017-06-28] MEDS: IBUPROFEN 600 MG TABLET PO PRN (08:39)
[2017-06-28] MEDS ORDERED: LORAZEPAM 1 MG TABLET PO SCH ×2 (09:00→21:00)
[2017-06-28 12:00] VITALS: BP 163/102
[2017-06-28] MEDS: hydrALAZINE HCL 50 MG TABLET PO PRN (12:15)
[2017-06-28 12:58] VITALS: BP 149/85
[2017-06-28] MEDS: LORAZEPAM 1 MG TABLET PO SCH ×2 (13:00→16:28)
[2017-06-28] MEDS: KETOROLAC TROMETHAMINE 30 MG INJ IM PRN (13:01)
[2017-06-28] MEDS: ONDANSETRON ODT 4 MG TAB.RAPDIS SL PRN (13:57)
[2017-06-28] MEDS: HYDROXYZINE PAMOATE 25 MG CAPSULE PO PRN ×2 (13:57→20:55)
[2017-06-28 16:00] VITALS: BP 149/78
[2017-06-28 20:00] VITALS: BP 122/60
[2017-06-28] MEDS: QUETIAPINE FUMARATE 100 MG TABLET PO PRN (20:54)
[2017-06-28] MEDS: ATORVASTATIN 10 MG TABLET PO SCH (20:55)
[2017-06-28] MEDS: PROPRANOLOL HCL 20 MG TABLET PO SCH (20:56)
[2017-06-29] MEDS: QUETIAPINE FUMARATE 25 MG TABLET PO PRN ×2 (04:29→14:58)
[2017-06-29 08:00] VITALS: BP 113/50
[2017-06-29] MEDS: CELECOXIB 200 MG CAPSULE PO SCH (09:11)
[2017-06-29] MEDS: VALSARTAN 160 MG TABLET PO SCH (09:11)
[2017-06-29] MEDS: THIAMINE HCL 100 MG TABLET PO SCH (09:11)
[2017-06-29] MEDS: LORAZEPAM 1 MG TABLET PO SCH ×3 (09:12→21:29)
[2017-06-29] MEDS: MULTIVITAMINS,THERAPEUTIC TABLET PO SCH (09:12)
[2017-06-29] MEDS: PANTOPRAZOLE SODIUM 40 MG TABLET.DR PO SCH (09:12)
[2017-06-29] MEDS: FOLIC ACID 1 MG TABLET PO SCH (09:13)
[2017-06-29] MEDS: GABAPENTIN 300 MG CAPSULE PO SCH ×3 (09:13→21:30)
[2017-06-29] MEDS: PROPRANOLOL HCL 20 MG TABLET PO SCH ×2 (09:13→21:29)
[2017-06-29] MEDS: DULOXETINE 60 MG CAPSULE.DR PO SCH (09:14)
[2017-06-29] MEDS: KETOROLAC TROMETHAMINE 30 MG INJ IM PRN ×2 (09:15→21:30)
[2017-06-29 12:00] VITALS: BP 128/75
[2017-06-29] MEDS: DICYCLOMINE HCL 20 MG TABLET PO PRN (14:58)
[2017-06-29 16:00] VITALS: BP 138/74
[2017-06-29] MEDS: ATORVASTATIN 10 MG TABLET PO SCH (21:29)
[2017-06-29] MEDS: QUETIAPINE FUMARATE 100 MG TABLET PO PRN (21:29)
[2017-06-30] MEDS: QUETIAPINE FUMARATE 25 MG TABLET PO PRN ×4 (01:52→19:40)
[2017-06-30] MEDS: HYDROXYZINE PAMOATE 25 MG CAPSULE PO PRN (01:52)
[2017-06-30 08:00] VITALS: BP 143/81
[2017-06-30] MEDS ORDERED: QUETIAPINE FUMARATE 100 MG TABLET PO PRN (08:30)
[2017-06-30] MEDS: LORAZEPAM 1 MG TABLET PO SCH ×2 (08:54→21:40)
[2017-06-30] MEDS: CELECOXIB 200 MG CAPSULE PO SCH (08:54)
[2017-06-30] MEDS: VALSARTAN 160 MG TABLET PO SCH (08:55)
[2017-06-30] MEDS: DULOXETINE 60 MG CAPSULE.DR PO SCH (08:55)
[2017-06-30] MEDS: PROPRANOLOL HCL 20 MG TABLET PO SCH ×2 (08:56→21:38)
[2017-06-30] MEDS: FOLIC ACID 1 MG TABLET PO SCH (08:56)
[2017-06-30] MEDS: GABAPENTIN 300 MG CAPSULE PO SCH ×3 (08:57→21:40)
[2017-06-30] MEDS: PANTOPRAZOLE SODIUM 40 MG TABLET.DR PO SCH (08:58)
[2017-06-30] MEDS: ONDANSETRON ODT 4 MG TAB.RAPDIS SL PRN (08:58)
[2017-06-30] MEDS: MULTIVITAMINS,THERAPEUTIC TABLET PO SCH (08:58)
[2017-06-30] MEDS: THIAMINE HCL 100 MG TABLET PO SCH (08:59)
[2017-06-30] MEDS: DICYCLOMINE HCL 20 MG TABLET PO PRN (08:59)
[2017-06-30] MEDS: KETOROLAC TROMETHAMINE 30 MG INJ IM PRN (09:00)
[2017-06-30] MEDS ORDERED: LORAZEPAM 1 MG TABLET PO ONE (10:30)
[2017-06-30] MEDS: METHOCARBAMOL 500 MG TABLET PO PRN ×2 (10:34→21:40)
[2017-06-30 12:00] VITALS: BP 129/63
[2017-06-30] MEDS ORDERED: GABA-534 PO (15:42)
[2017-06-30] MEDS ORDERED: DULO60CA45 PO (15:42)
[2017-06-30] MEDS ORDERED: HYDR-3895 PO (15:42)
[2017-06-30] MEDS ORDERED: VALS160T2 PO (15:42)
[2017-06-30] MEDS ORDERED: PROP20TA19 PO (15:42)
[2017-06-30] MEDS ORDERED: METH500T6 PO (15:42)
[2017-06-30 16:30] VITALS: BP 135/80
[2017-06-30 20:00] VITALS: BP 126/65
[2017-06-30] MEDS: QUETIAPINE FUMARATE 200 MG TABLET PO PRN (21:40)
[2017-06-30] MEDS: ATORVASTATIN 10 MG TABLET PO SCH (21:41)
[2017-07-01 08:00] VITALS: BP 150/69
[2017-07-01] MEDS ORDERED: LORAZEPAM 1 MG TABLET PO SCH (09:00)
[2017-07-01] MEDS: VALSARTAN 160 MG TABLET PO SCH (09:50)
[2017-07-01] MEDS: DULOXETINE 60 MG CAPSULE.DR PO SCH (09:51)
[2017-07-01] MEDS: PROPRANOLOL HCL 20 MG TABLET PO SCH ×2 (09:51→20:30)
[2017-07-01] MEDS: THIAMINE HCL 100 MG TABLET PO SCH (09:52)
[2017-07-01] MEDS: GABAPENTIN 300 MG CAPSULE PO SCH ×3 (09:52→20:26)
[2017-07-01] MEDS: CELECOXIB 200 MG CAPSULE PO SCH (09:53)
[2017-07-01] MEDS: MULTIVITAMINS,THERAPEUTIC TABLET PO SCH (09:53)
[2017-07-01] MEDS: PANTOPRAZOLE SODIUM 40 MG TABLET.DR PO SCH (09:53)
[2017-07-01] MEDS: FOLIC ACID 1 MG TABLET PO SCH (09:53)
[2017-07-01 12:00] VITALS: BP 147/75
[2017-07-01 16:00] VITALS: BP 157/69
[2017-07-01 20:00] VITALS: BP 137/87
[2017-07-01] MEDS: QUETIAPINE FUMARATE 25 MG TABLET PO PRN (20:26)
[2017-07-01] MEDS: ATORVASTATIN 10 MG TABLET PO SCH (20:27)
[2017-07-01] MEDS: KETOROLAC TROMETHAMINE 30 MG INJ IM PRN (20:40)
[2017-07-02] VITALS: BP 147/75
[2017-07-02] MEDS: QUETIAPINE FUMARATE 200 MG TABLET PO PRN
[2017-07-02 06:45] VITALS: BP 127/82
[2017-07-02] MEDS: FOLIC ACID 1 MG TABLET PO SCH (06:56)
[2017-07-02] MEDS: DULOXETINE 60 MG CAPSULE.DR PO SCH (06:56)
[2017-07-02] MEDS: PROPRANOLOL HCL 20 MG TABLET PO SCH (06:56)
[2017-07-02] MEDS: PANTOPRAZOLE SODIUM 40 MG TABLET.DR PO SCH (06:56)
[2017-07-02] MEDS: MULTIVITAMINS,THERAPEUTIC TABLET PO SCH (06:56)
[2017-07-02] MEDS: CELECOXIB 200 MG CAPSULE PO SCH (06:57)
[2017-07-02] MEDS: THIAMINE HCL 100 MG TABLET PO SCH (06:57)
[2017-07-02] MEDS: VALSARTAN 160 MG TABLET PO SCH (06:57)
[2017-07-02] MEDS: GABAPENTIN 300 MG CAPSULE PO SCH (07:52)
[2017-07-02 08:00] VITALS: BP 127/82
== END 2017-07-02 08:30 | DRG 895 ==
LOC: SRC 20:44
PROVIDERS: ADMIT Internal Medicine; ATTEND Internal Medicine
PROC: HZ2ZZZZ Detoxification Services for Substance Abuse Treatment (ICD-10-PCS; principal; 2017-06-25)
PROC: HZ31ZZZ Individual Counseling for Substance Abuse Treatment, Behavioral (ICD-10-PCS; 2017-06-26)
PROC: HZ41ZZZ Group Counseling for Substance Abuse Treatment, Behavioral (ICD-10-PCS; 2017-06-29)
DX: F10.232 Alcohol dependence with withdrawal with perceptual disturbance (principal); E87.8 Other disorders of electrolyte and fluid balance, not elsewhere classified; E88.81 Metabolic syndrome and other insulin resistance; E87.1 Hypo-osmolality and hyponatremia; I15.8 Other secondary hypertension; K70.10 Alcoholic hepatitis without ascites; E78.5 Hyperlipidemia, unspecified; E86.0 Dehydration; Y90.8 Blood alcohol level of 240 mg/100 ml or more; E66.9 Obesity, unspecified; Z68.35 Body mass index [BMI] 35.0-35.9, adult; Z79.899 Other long term (current) drug therapy; G47.00 Insomnia, unspecified; F11.11 Opioid abuse, in remission; G89.29 Other chronic pain; F41.9 Anxiety disorder, unspecified; K27.7 Chronic peptic ulcer, site unspecified, without hemorrhage or perforation; F32.9 Major depressive disorder, single episode, unspecified; D64.9 Anemia, unspecified; F90.9 Attention-deficit hyperactivity disorder, unspecified type; F17.210 Nicotine dependence, cigarettes, uncomplicated; M54.5 Low back pain
CPT/HCPCS: 36415; 70030-TC; 80307; 83735; 84703; 85025; 86592; 86705; 86803; 87340; 87806; 97116; 97530; A4663; G0480; J1885; Q0162; Q0163